=== PATIENT | male | born 1970 | race Caucasian/White ===

== ENCOUNTER 2021-08-25 14:00 | Outpatient (CLI) | payer OTHER | END 2021-08-25 14:01 | disposition critical access hospital (66) | LOC: EMS 14:00 | DX: Z04.1 Encounter for examination and observation following transport accident (principal); M79.632 Pain in left forearm | CPT/HCPCS: A0425; A0427 ==

== ENCOUNTER 2021-08-25 14:24 | Emergency (ER) | payer OTHER ==
[2021-08-25] MEDS ORDERED: KETOROLAC 30 MG/ML VIAL IVP STA (14:49)
[2021-08-25] MEDS ORDERED: IOVERSOL 320 100 ML VIAL IVP ONE ×2 (15:12→15:24)
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
[2021-08-25] MEDS ORDERED: HYDROmorphone 1 MG/ML CARPUJECT IVP STA ×2 (16:13→17:29)
[2021-08-25] MEDS ORDERED: ONDANSETRON 4 MG/2 ML VIAL IVP STA (16:13)
[2021-08-25 17:38] LABS: B. PARAPERTUSSIS- RESP PCR PAN NOT DETECTED; B. PERTUSSIS- RESP PCR PANEL NOT DETECTED; C. PNEUMONIAE- RESP PCR PANEL NOT DETECTED; CORONAVIRUS 229E-RESP PCR NOT DETECTED; CORONAVIRUS HKU1-RESP PCR NOT DETECTED; CORONAVIRUS NL63-RESP PCR NOT DETECTED; CORONAVIRUS OC43-RESP PCR NOT DETECTED; HUMAN METAPNEUMOVIRUS NOT DETECTED; INFLUENZA A- RESP PCR PANEL NOT DETECTED; INFLUENZA B - RESP PCR PANEL NOT DETECTED; M. PNEUMONIAE- RESP PCR PANEL NOT DETECTED; PARAINFLUENZA VIRUS 1 NOT DETECTED; PARAINFLUENZA VIRUS 2 NOT DETECTED; PARAINFLUENZA VIRUS 3 NOT DETECTED; PARAINFLUENZA VIRUS 4 NOT DETECTED; RHINOVIRUS/ENTEROVIRUS NOT DETECTED; RSV- RESP PCR PANEL NOT DETECTED; SARS-CoV-2 -RESP PCR PANEL NOT DETECTED
[2021-08-25 17:43] VITALS: BP 120/85
== END 2021-08-25 17:56 | disposition short-term general hospital (02) ==
LOC: ED 14:24
DX: S13.9XXA Sprain of joints and ligaments of unspecified parts of neck, initial encounter (principal); T14.8XXA Other injury of unspecified body region, initial encounter; S20.212A Contusion of left front wall of thorax, initial encounter; S50.12XA Contusion of left forearm, initial encounter; V43.62XA Car passenger injured in collision with other type car in traffic accident, initial encounter; W22.12XA Striking against or struck by front passenger side automobile airbag, initial encounter; Y92.488 Other paved roadways as the place of occurrence of the external cause; I10 Essential (primary) hypertension; Z98.1 Arthrodesis status; Z20.822 Contact with and (suspected) exposure to COVID-19
CPT/HCPCS: 0202U; 51702; 71260; 72125; 73090; 96374; 96375; 96376; 99284; 99285; J1170; Q9967

== ENCOUNTER 2021-08-25 17:58 | Outpatient (CLI) | payer OTHER | END 2021-08-25 17:59 | disposition short-term general hospital (02) | LOC: EMS 17:58 | PROVIDERS: ATTEND Emergency Medicine | DX: T14.8XXA Other injury of unspecified body region, initial encounter (principal); G81.94 Hemiplegia, unspecified affecting left nondominant side; S20.212A Contusion of left front wall of thorax, initial encounter; S80.12XA Contusion of left lower leg, initial encounter; S50.12XA Contusion of left forearm, initial encounter; V43.52XA Car driver injured in collision with other type car in traffic accident, initial encounter; Y93.89 Activity, other specified; Y92.410 Unspecified street and highway as the place of occurrence of the external cause | CPT/HCPCS: A0425; A0426 ==